=== PATIENT | male | born 1960 | race African-American/Black ===

== ENCOUNTER 2017-03-10 11:28 | Emergency (ER) | payer MEDICAID ==
[~2017-03-10] VITALS: Ht 172.7 cm; Wt 81.0 kg
[~2017-03-10 11:28] MED LIST: BENA5TAB3; TRAM50TA3
[2017-03-10] MEDS ORDERED: KETOROLAC 60MG/2ML VIAL IM ONE (12:30)
[2017-03-10 12:41] VITALS: BP 150/76
== END 2017-03-10 12:42 | disposition home or self-care (01) ==
LOC: ER 11:54
DX: M54.12 Radiculopathy, cervical region (principal); I10 Essential (primary) hypertension; M25.512 Pain in left shoulder
CPT/HCPCS: 96372; 99283; J1885